=== PATIENT | male | born 1940 | race Caucasian/White ===

== ENCOUNTER 2018-05-22 11:36 | Emergency (ER) | payer MEDICARE, MEDICAID ==
[~2018-05-22] VITALS: Ht 165.1 cm; Wt 76.7 kg
[2018-05-22 11:44] VITALS: BP_SYST 158
[2018-05-22 13:04] VITALS: BP_SYST 147
== END 2018-05-22 13:04 | disposition home or self-care (01) ==
LOC: SED 11:36
DX: S42.031A Displaced fracture of lateral end of right clavicle, initial encounter for closed fracture (principal); R03.0 Elevated blood-pressure reading, without diagnosis of hypertension; V80.010A Animal-rider injured by fall from or being thrown from horse in noncollision accident, initial encounter; Y93.89 Activity, other specified; Y92.89 Other specified places as the place of occurrence of the external cause; Y99.8 Other external cause status
CPT/HCPCS: 73030; 73564; 99284